=== PATIENT | male | born 1945 | race Caucasian/White ===

== ENCOUNTER 2018-02-02 09:38 | Observation (INO) ==
[2018-02-02] MEDS ORDERED: Bisacodyl 10 MG Supp RECTAL PRN (15:10)
[2018-02-02] MEDS ORDERED: Ketorolac Inj 30 MG/ML (IVP) Vial IV.PUSH PRN ×2 (15:11→16:41)
--- NOTE | 2018-02-02 16:01 | P.HP ---
History of Present Illness Primary Care Physician: UNKNOWN Chief Complaint: Left flank pain History of Present Illness: This is a pleasant 73-year-old male patient with a known medical history of hypertension and Parkinson's disease who presented to the ED with complaints of left flank pain for the last 3 days. Patient states that over the past couple weeks he has noticed a dull aching in his left lower quadrant that radiates to his left back. He states that over the course of the last 3 days the pain has worsened. He attempted to take a Tylenol 3 that he got 2 years ago for the same symptoms which did not seem to help relieve the pain. He denies any associated fevers, chills, cough, shortness of breath, nausea, vomiting, diarrhea or dysuria. He denies any blood in his urine as well. It should be noted that 2 years ago he was diagnosed with a kidney stone which supposedly passed on his own. He does not follow with a urologist. Upon presentation patient is alert and awake, at bedside who is assisting with providing history. Patient does have a history of Parkinson's disease, does have essential tremors at his baseline. UA was negative upon presentation. The CT scan of his abdomen showed a 6 mm obstructing stone in the left UVJ with hydroureter and hydronephrosis as well as right 1 mm nonobstructing renal stone. Creatinine elevated to 1.5/BUN 23. Patient denies any history of chronic kidney disease. Urology has been consulted, awaiting evaluation. - Diagnosis (1) Nephrolithiasis (2) Acute renal failure (ARF) Review of Systems All other systems reviewed negative except as stated in HPI [facility] - History History Provided By: Patient - Medical History Medical History: Medical History (Last Reviewed 02/02/18 @ 16:10 by Yayo Sanchez RN) Hypertension Parkinson disease - Surgical History Surgical History: Surgical History (Last Reviewed 02/02/18 @ 16:10 by Yayo Sanchez RN) Hx of tonsillectomy - Family History Family History: Family History (Last Updated 02/02/18 @ 16:23 by Sandra Lofton) Other No pertinent family history - Tobacco History Smoking Status: Former smoker Tobacco Type: Cigarettes - Alcohol History How Often Do You Have a Drink Containing Alcohol: Monthly or less - Substance Use History Substance History: No History of Abuse Medications and Allergies Active Medications: Active Medications Bisacodyl (Dulcolax Supp) 10 mg RECTAL DAILY PRN PRN Reason: SEVERE CONSITIPATION Lactated Ringer's (Lr 1000 Ml Inj) 1,000 mls @ 100 mls/hr IV.CONT .Q10H [place] Ketorolac Tromethamine (Toradol Inj) 15 mg IV.PUSH Q6H PRN PRN Reason: PAIN SCALE 6 TO 10 Stop: 02/07/18 15:10 Lactulose (Lactulose Liq) 30 ml PO DAILY PRN PRN Reason: SEVERE CONSITIPATION Metoclopramide HCl (Reglan Inj) 5 mg IV.PUSH Q6HR PRN; Protocol PRN Reason: NAUSEA OR VOMITING Temazepam (Restoril) 15 mg PO HS PRN PRN Reason: INSOMNIA Allergies Allergy/AdvReac Type Severity Reaction Status Date / Time No Known Allergies Allergy Verified 02/02/18 09:57 Home Medications Medication Instructions Recorded Confirmed Type aspirin [Aspir-81] 81 mg PO DAILY 02/02/18 02/02/18 History benazepril 40 mg PO DAILY 02/02/18 02/02/18 History carbidopa-levodopa [Sinemet] 1 tab PO TID 02/02/18 02/02/18 History omega 0-yfa-jix-fish oil [Fish Oil] 1 tab PO DAILY 02/02/18 02/02/18 History Exam Narrative: GENERAL: Well-developed, well-nourished patient in [facility]. SKIN: Warm and dry. No rash. Ental tremors secondary to Parkinson's disease. HEAD: Normocephalic. Atraumatic. EYES: Pupils equal and round. No scleral icterus. No injection or drainage. ENT: No nasal bleeding or discharge. Mucous membranes pink and moist. NECK: Supple. Trachea midline. CARDIOVASCULAR: Regular rate and rhythm. S1, S2 noted. No murmur appreciated. RESPIRATORY: No accessory muscle use. Clear to auscultation. Breath sounds equal bilaterally. GASTROINTESTINAL: Abdomen soft, non-tender, nondistended. Normoactive bowel sounds x4. : Left sided CVA tenderness. MUSCULOSKELETAL: No obvious deformities. Extremities without clubbing, cyanosis , or edema. NEUROLOGICAL: Awake and alert. No obvious cranial nerve deficits. Motor grossly within normal limits. 5/5 muscle strength in bilateral upper and lower extremities. Normal speech. PSYCHIATRIC: Appropriate mood and affect; insight and judgment normal. Caprini VTE Risk Assessment Caprini VTE Risk Assessment: Moderate/High Risk (score >= 2) Caprini Risk Assessment Model: Point Value = 1 Point Value = 2 Point Value = 3 Point Value = 5 Age 41-60 Minor surgery BMI > 25 kg/m2 Swollen legs Varicose veins or History of unexplained or recurrent spontaneous Oral contraceptives or hormone replacement Sepsis (< 1 month) Serious lung disease, including pneumonia (< 1 month) Abnormal pulmonary function Acute myocardial infarction Congestive heart failure (< 1 month) History of inflammatory bowel disease Medical patient at bed rest Age 61-74 Arthroscopic surgery Major open surgery (> 45 min) Laparoscopic surgery (> 45 min) Malignancy Confined to bed (> 72 hours) Immobilizing plaster cast Central venous access Age >= 75 History of VTE Family history of VTE Factor V Leiden Prothrombin [id number] Lupus anticoagulant Anticardiolipin antibodies Elevated serum homocysteine Heparin-induced thrombocytopenia Other congenital or acquired thrombophilia Stroke (< 1 month) Elective arthroplasty Hip, pelvis, or leg fracture Acute spinal cord injury (< 1 month) Prophylaxis Regimen: Total Risk Factor Score Risk Level Prophylaxis Regimen 0-1 Low Early ambulation 2 Moderate Order ONE of the following: *Sequential Compression Device (SCD) *Heparin 5000 units SQ BID 3-4 Higher Order ONE of the following medications: *Heparin 5000 units SQ TID *Enoxaparin/Lovenox 40 mg SQ daily (WT < 150 kg, CrCl > 30 mL/min) *Enoxaparin/Lovenox 30 mg SQ daily (WT < 150 kg, CrCl > 10-29 mL/min) *Enoxaparin/Lovenox 30 mg SQ BID (WT < 150 kg, CrCl > 30 mL/min) AND/OR *Sequential Compression Device (SCD) 5 or more Highest Order ONE of the following medications: *Heparin 5000 units SQ TID (Preferred with Epidurals) *Enoxaparin/Lovenox 40 mg SQ daily (WT < 150 kg, CrCl > 30 mL/min) *Enoxaparin/Lovenox 30 mg SQ daily (WT < 150 kg, CrCl > 10-29 mL/min) *Enoxaparin/Lovenox 30 mg SQ BID (WT < 150 kg, CrCl > 30 mL/min) AND *Sequential Compression Device (SCD) Assessment and Plan - Assessment (1) Nephrolithiasis Code(s): N20.0 - Calculus of kidney Status: Acute (2) Acute renal failure (ARF) Code(s): N17.9 - Acute kidney failure, unspecified Status: Acute - Plan This is a pleasant 73-year-old male patient with a known medical history of hypertension and Parkinson's disease with: Bilateral nephrolithiasis Acute kidney injury suspect secondary to above -Patient presented with left flank pain 3 days. Does have a history of kidney stone. -Abdominal CT reviewed showing 6 mm left obstructing stone in his UVJ as well as a 1 mm nonobstructing right renal stone. -Creatinine 1.5/BUN 23. Ua negative. -Urology has been consulted, input and recommendations pending. -Ensure hydration, continue IV fluid. -Continue to monitor BMP. -Pain control with Toradol. Supportive care. Cholelithiasis Elevated bilirubin suspect secondary to above -Abdominal CT showing cholelithiasis. Total bilirubin 1.7. Will obtain gallbladder ultrasound. Follow LFTs. Hypertension, chronic: Hold home GEETA. Clonidine as needed per parameters. Monitor BP trends. History of Parkinson's disease: Will continue home medications. Supportive care. DVT prophylaxis: SCDs. Hold chemical prophylaxis for now, may need urological procedure. (2) Acute renal failure (ARF) Qualifiers: Acute renal failure type: unspecified Qualified Code(s): N17.9 - Acute kidney failure, unspecified
[2018-02-02] MEDS ORDERED: Temazepam 15 MG Capsule PO PRN (21:00)
--- NOTE | 2018-02-02 21:11 | MB ---
cc: Michele Frey MD DATE: 02/02/2018 REASON FOR CONSULTATION: 1. Left distal ureteral stone. 2. Left flank pain. HISTORY OF PRESENT ILLNESS: The patient is a 73-year-old male with a history of Parkinson disease and kidney stones who presented to the [place] ER earlier this morning with a 3-week history of intermittent left flank pain radiating to his left groin. This pain was similar to his prior kidney stone pain in the past. The patient denies nausea, vomiting, fevers, chills, hematuria or dysuria. In the ER and a CT abdomen and pelvis without contrast done, which showed a 6 mm left distal stone at his UVJ partially protruding into his bladder. He also was found to have a 1 mm nonobstructing stone. He was then transferred from [facility] to [facility] for further evaluation. Currently, the patient denies any pain, more of just a dull ache, 1/10 at its most. Last night, his pain reached a peak of 10/10, which is what brought him to the ER. He has never seen a urologist in the past, but he has passed multiple kidney stones. He denies a family history of kidney stones or family history of prostate cancer. Denies any urinary tract symptoms including urgency or frequency. He does feel like he empties his bladder and gets up several times a night. REVIEW OF SYSTEMS: See HPI. All systems were reviewed and otherwise were negative. PAST MEDICAL HISTORY: Significant for hypertension, Parkinson disease, kidney stones. PAST SURGICAL HISTORY: Tonsillectomy, circumcision. FAMILY HISTORY: Denies urolithiasis or genitourinary malignancies. ALLERGIES: NO KNOWN DRUG ALLERGIES. MEDICATIONS: Include carbidopa/levodopa, tamsulosin, temazepam, Reglan, Dulcolax, clonidine, aspirin. SOCIAL HISTORY: Denies smoking, alcohol or illicit drugs. He is currently . PHYSICAL EXAMINATION: VITAL SIGNS: Temperature 96 degrees, pulse 78, respiratory rate 18, BP 159/73, saturating 93% on room air. GENERAL: He is oriented x3, no apparent distress, pleasant and cooperative gentleman who appears his stated age. HEAD: Normocephalic, atraumatic. EYES: No scleral icterus. Extraocular muscles intact. SKIN: Warm and dry. No ulcers or rashes. LUNGS: Clear to auscultation bilaterally. No wheezes, rales or rhonchi. HEART: Regular rate and rhythm. No murmurs, gallops or rubs. ABDOMEN: Soft, nontender, nondistended. Positive bowel sounds. GENITOURINARY: There is no CVA tenderness bilaterally. His penis is circumcised. Testes are descended bilaterally and of normal size and consistency without mass. RECTAL: Not indicated at this time. EXTREMITIES: Nontender. No clubbing, cyanosis or edema. NEUROLOGIC: Cranial nerves 2-12 intact. Strength is 5/5 in all 4 extremities. PSYCHIATRIC: Normal affect. LABORATORY DATA: Show white count 7.6, hemoglobin 15.1, hematocrit 42.1, platelet count 197. Sodium 139, potassium 4.1, chloride 103, bicarbonate 28, BUN 23, creatinine 1.50, uric acid currently pending, calcium 9.0. His urine showed just a few oxalate crystals and small blood. IMAGING STUDIES: CT abdomen and pelvis without contrast images were reviewed and agreed with the radiologist's report. The patient has a 6 mm left UVJ stone with mild hydronephrosis and a 1 mm nonobstructing renal stone. ASSESSMENT: The patient is a 73-year-old male with a history of Parkinson disease who was admitted with left flank pain and found to have a distal left ureteral stone with mild hydronephrosis as well as a 1 mm nonobstructive stone. PLAN: Recommend conservative management. The patient has a high likelihood of passing a stone, if he has not already. We recommend to continue to strain urine, start the patient on Flomax and obtain a KUB in the morning. We will also check a parathyroid hormone and uric acid while he is here to start the metabolic workup to figure out the etiology of his recurrent stone disease. As long he has no issues overnight and his pain is well controlled, he can be discharged in the morning and follow up with his urologist back in [place], [place]. MD MAGGY Iniguez/sushma , 06:25 PM , 06:35 PM
--- NOTE | 2018-02-03 05:23 | XR ---
EXAM DATE: 02/03/2018 5:17 AM EDT AGE/SEX: 73 years / Male INDICATIONS: Calculi, obstruction. CLINICAL DATA: This is the patient's subsequent encounter. Patient reports that signs and symptoms h ave been present for 2 days and indicates a pain score of 0/10. MEDICAL/SURGICAL HISTORY: Renal calculi. None. COMPARISON: [facility], CT ABDOMEN & PELVIS W/O CONTRAST, 02/02/2018. . FINDINGS: 3 supine frontal views of the abdomen demonstrate no abnormal densities overlying the kidneys or wit hin the pelvis. The stone at the ureterovesical junction documented on yesterday's CT is not visualiz ed. Calcified granulomas are present within the spleen. There is a nonobstructive bowel gas pattern. Degenerative changes are present within the lumbar spine. CONCLUSION: The left UVJ stone documented on yesterday's CT is not visualized on this examination. No renal stone s are appreciated. Electronically signed by: Ridge Peña MD 02/03/2018 5:22 AM EDT
[2018-02-03 07:57] LABS: Chloride 103 meq/L (98-107); Potassium 3.9 meq/L (3.5-5.1); Sodium 138 meq/L (136-145)
[2018-02-03 08:00] LABS: Albumin 3.4 g/dL (3.4-5.0); Anion Gap 7 meq/L (5-15); Blood Urea Nitrogen 18 mg/dL (7-18); Calcium 8.4 mg/dL (8.5-10.1); Glucose,Random 100 mg/dL (74-106)
[2018-02-03 08:03] LABS: Alanine Aminotransferase 21 U/L (12-78); Aspartate Aminotransferase 15 U/L (15-37)
[2018-02-03 08:04] LABS: Glomerular Filtration Rate 66 mL/min (>89)
[2018-02-03 08:06] LABS: Alkaline Phosphatase 62 U/L (45-117)
--- NOTE | 2018-02-03 08:40 | ECG ---
Date Performed: 02/02/2018 Time Performed: 15:36:35 PTAGE: 73 years EKG: Sinus rhythm WITH FIRST DEGREE AV BLOCK NONSPECIFIC T-WAVE ABNORMALITY ABNORMAL ECG NO PREVIOUS TRACING DOCTOR: Michael Erazo Interpretating Date/Time 02/03/2018 08:38:35
--- NOTE | 2018-02-03 08:45 | P.PN ---
Subjective Interval history: 73-year-old male seen in follow-up today for nephrolithiasis, cholelithiasis. Patient is doing much better. No longer experiencing any pain. Discussed with patient that he has passed his stone. Vital signs are stable. Patient remains afebrile. Physical Exam Vital signs: Vital Signs 02/02/18 16:00 02/02/18 20:00 02/03/18 00:00 Temperature 96 F L 96.7 F L 96.6 F L Pulse Rate 78 68 64 Respiratory Rate 18 20 20 Blood Pressure 159/73 H 132/69 100/56 L Pulse Oximetry 93 L 93 L 93 L Intake & Output 02/02/18 02/03/18 02/03/18 18:59 06:59 18:59 Intake Total 360 / 360 0 / 0 1000 / 1000 Output Total 650 / 650 Balance 360 / 360 -650 / -650 1000 / 1000 Weight 88.4 kg 88.3 kg Intake: IV 1000 / 1000 LR 1000 mL Inj 1,000 ML @ 100 1000 / 1000 mls/hr IV.CONT .Q10H [place] Rx#: [id number] Oral 360 / 360 0 / 0 Output: Urine 650 / 650 Other: # Voids 2 Date of Last Bowel Movement 02/02/18 Narrative: GENERAL: Well-developed, well-nourished, in no acute distress. alert and orientated HEENT: Head is normocephalic without any lesions or masses noted. Facial features are symmetric. Eyes: Extraocular muscles are intact. Conjunctivae were clear. NECK: Supple without any masses. Trachea midline no deviation. No JVD, CARDIAC: Regular rhythm, regular rate. S1/S2 are heard. No murmurs gallops or rubs. LUNGS: Clear to auscultation bilaterally. No wheeze, rhonchi or rales. No use of accessory muscles on inspiration or expiration. ABDOMEN: Soft, nontender. Nondistended. Bowel sounds heard in all 4 quadrants. No organomegaly or masses. Negative rebound, negative guarding EXTREMITIES: No edema, pulses are equal bilaterally. No cyanosis or clubbing NEUROLOGY: Mood and affect appear appropriate. Cranial nerves II through XII grossly intact. Moving all extremities, speech is clear. Patient does have mild resting tremor Results - Labs CBC & Chem 7: 02/03/18 06:40 Laboratory Results - last 24 hr 02/02/18 02/02/18 02/03/18 17:10 17:10 06:40 Sodium 138 Potassium 3.9 Chloride 103 Carbon Dioxide 28.0 Anion Gap 7 BUN 18 Creatinine 1.10 Estimated GFR 66 L Random Glucose 100 Uric Acid 7.3 H Calcium 8.4 L Total Bilirubin 2.4 H AST 15 ALT 21 Alkaline Phosphatase 62 Total Protein 7.0 D Albumin 3.4 D PTH Intact 45.9 - Imaging Impressions Abdomen X-Ray 02/03/18 06:00 CONCLUSION: The left UVJ stone documented on yesterday's CT is not visualized on this examination. No renal stones are appreciated. Assessment and Plan - Assessment (1) Nephrolithiasis Code(s): N20.0 - Calculus of kidney Status: Inactive (2) Acute renal failure (ARF) Code(s): N17.9 - Acute kidney failure, unspecified Status: Inactive - Plan Bilateral nephrolithiasis, secondary to obstructive uropathy -Abdominal CT reviewed showing 6 mm left obstructing stone in his UVJ as well as a 1 mm nonobstructing right renal stone. -Follow-up KUB indicates that the previously seen stone is no longer present -Ultrasound indicated that there is a nonobstructing stone in the right ureter, the previously seen obstructing stone in the left ureter is no longer visible -Urology following patient and indicated that stone has passed. Did further workup for metabolic abnormality -Mildly elevated uric acid -Continue IV fluids, pain control Acute kidney injury suspect secondary to above -Patient presented with left flank pain 3 days. Does have a history of kidney stone. -Renal functions have improved Cholelithiasis Elevated bilirubin suspect secondary to above -Abdominal CT showing cholelithiasis. Total bilirubin 1.7. -Hyperbilirubinemia is improving -Gallbladder ultrasound does not indicate any acute abnormality. Does show gallstones without any obstruction, no gallbladder wall thickening. Hypertension, chronic: -Resume home medications History of Parkinson's disease: -Resumed home medications. Supportive care. DVT prophylaxis: -Sequential compression devices Discussed Condition With: Patient Discharge Planning: Discharge home in stable condition Activity: Ad abdullahi. Diet: Healthy heart diet Medication per medication reconciliation Follow-up with primary medical doctor in 1 week (2) Acute renal failure (ARF) Qualifiers: Acute renal failure type: unspecified Qualified Code(s): N17.9 - Acute kidney failure, unspecified
[2018-02-03] MEDS ORDERED: Lisinopril 20 MG Tablet PO SCH (09:00)
--- NOTE | 2018-02-03 09:52 | US ---
EXAM DATE: 02/03/2018 9:32 AM EDT AGE/SEX: 73 years / Male INDICATIONS: Gallstones. CLINICAL DATA: This is the patient's initial encounter. Patient reports that signs and symptoms have been present for 1 day and indicates a pain score of 0/10. MEDICAL/SURGICAL HISTORY: Parkinson's disease. Hypertension. Tonsillectomy. COMPARISON: [facility], CT ABDOMEN & PELVIS W/O CONTRAST, 02/02/2018. . MEASUREMENTS: Liver:__ 15.4 cm. Common Bile Duct:__ 5mm. FINDINGS: Liver: Increased echotexture without focal lesion or ductal dilation. Portal Vein: Hepatopedal flow seen in portal vein. Common Duct: No intraluminal mass or stone visualized. Gallbladder: Small gallstone. No gallbladder wall thickening or pericholecystic fluid. Pancreas: Not well visualized. Right Kidney: Increased echotexture. No mass or hydronephrosis. Punctate nonobstructing calculus cinthia sures 7 mm. Other: None CONCLUSION: 1. Cholelithiasis without gallbladder wall thickening. 2. Probable punctate nonobstructing right renal calculus. Electronically signed by: Sree Pat MD 02/03/2018 9:50 AM EDT
== END 2018-02-03 12:22 | disposition home or self-care (01) ==
LOC: PH3 14:44 → PHEDDLT 14:44
PROVIDERS: ADMIT Hospitalist; ATTEND Hospitalist